=== PATIENT | male | born 1950 | race Caucasian/White ===

== ENCOUNTER → 2016-08-08 | Outpatient (CLI) | payer BC, MEDICARE ==
[~2016-08-08] MED LIST: ALBUTEROL MININEB NEB; ALBUTEROL17 GM INH; BAYER CHEWABLE81 MG PO; CARDIZEM30 M1 PO; CLONIDINE PO; FLOMAX0.4 M1 PO; HYDRALAZINE HC100 MG PO; LANTUS100 U/ML SUBQ; LEVAQUIN PO; LEVEMIR SUBQ; LIPITOR40 MG PO; NORVASC10 MG PO; NOVOLOG100 U/ML; NOVOLOG100 U/ML SUBQ; PREDNISONE10 MG/DOSE PO; PROMETHAZINE W118 M1 PO; TOPROL XL PO; VALCYTE450 MG PO; VFEND50 MG PO
--- NOTE | ~2016-08-08 | CT57 ---
[facility] A Service [facility] RADIOLOGY TEXT RESULTS PATIENT: DENIA KNAPP LOCATION: [facility] : 48 UNIT #: [id number] AGE: [address]: Earnest Call MD SEX: M ORDER DR: [id number] [place] [id number] O MR#: [id number] Acc #: [id number] NAME: DENIA KNAPP : 1950 SEX: M STUDY DATE/TIME: 08/08/2016 9:32 UNIT: [facility] ROOM: STUDY DESCRIPTION: CT Chest Wo Cont Attending Physician: Earnest Call M.D. Referring Physician: Earnest Call M.D. Ordering Physician: Earnest Call M.D. Primary Care Physician: Kang Agarwal M.D. MEDICAL IMAGING REPORT This report is preliminary unless electronic signature is present. EXAM CT chest without contrast. INDICATION Restaging lung cancer. Observation for metastatic disease. PROCEDURE Unenhanced CT of the chest. This CT exam was performed with one or more of the following radiation dose reduction techniques: automatic exposure control, adjustment of mA and/or kV according to patient size, and iterative reconstruction. COMPARISON STUDIES 06/06/2016 FINDINGS Linear interstitial prominence in the medial right upper lobe and superior segment of the right lower lobe shows some interval evolution and is most in keeping with postradiation change. There is a 9 mm subpleural nodule in the right lung base not seen on the prior. Left lung is clear. Right perihilar soft tissue thickening is stable. Partially calcified mediastinal nodes are not significantly changed. Nodular density along the anterior aspect of the proximal aortic arch is stable measuring 1.9 cm. Coronary artery calcification. No new or enlarging adenopathy. No aggressive appearing bone lesion. IMPRESSION 1. No evidence for disease progression. 2. Evolving postradiation change in the medial right upper lobe and superior segment of the right lower lobe. [facility] A Service [facility] RADIOLOGY TEXT RESULTS PATIENT: DENIA KNAPP LOCATION: [facility] : 48 UNIT #: [id number] AGE: [address]: Earnest Call MD SEX: M ORDER DR: 3. No new or enlarging adenopathy. 4. Refer to the separately dictated abdomen CT for findings below the diaphragm. Dictated by... Malvin Lisa M.D. THIS IS AN ELECTRONICALLY VERIFIED REPORT Malvin Lisa M.D. at 08/08/2016 5:05 PM JOSE R/phu TD: 08/08/2016 11:57 JOB #: [id number] MEDICAL IMAGING REPORT Page 1 of 1
--- NOTE | ~2016-08-08 | CT7 ---
[facility] A Service [facility] RADIOLOGY TEXT RESULTS PATIENT: DENIA KNAPP LOCATION: [facility] : 48 UNIT #: [id number] AGE: [address]: Earnest Call MD SEX: M ORDER DR: [id number] [place] [id number] O MR#: [id number] Acc #: [id number] NAME: DENIA KNAPP : 1950 SEX: M STUDY DATE/TIME: 08/08/2016 8:18 UNIT: [facility] ROOM: STUDY DESCRIPTION: CT Abdomen Wo Cont Attending Physician: Earnest Call M.D. Referring Physician: Earnest Call M.D. Ordering Physician: Earnest Call M.D. Primary Care Physician: Kang Agarwal M.D. MEDICAL IMAGING REPORT This report is preliminary unless electronic signature is present. EXAM CT abdomen without contrast INDICATION Restaging lung cancer. Observation for metastatic disease. PROCEDURE Unenhanced CT of the abdomen. COMPARISON 06/06/2016. TECHNIQUE This CT examination was performed with one or more of the following radiation dose reduction techniques: automatic exposure control, adjustment of mA and/or kV according to patient size, and iterative reconstruction. FINDINGS Refer to the separately dictated chest CT for thoracic findings. The liver, spleen, adrenal glands, kidneys, gallbladder have an unremarkable unenhanced appearance. Calcifications scattered throughout the pancreas suggesting chronic pancreatitis. The bowel loops are nondilated. There is moderate colonic stool burden. Atherosclerotic calcification of the abdominal aorta. No aggressive appearing bone lesion. IMPRESSION 1. No convincing evidence for metastatic disease in the abdomen or pelvis. 2. Incidental findings detailed above are very similar to the previous study. [facility] A Service [facility] RADIOLOGY TEXT RESULTS PATIENT: DENIA KNAPP LOCATION: [facility] : 48 UNIT #: [id number] AGE: [address]: Earnest Call MD SEX: M ORDER DR: Dictated by... Malvin E. Sloan, M.D. THIS IS AN ELECTRONICALLY VERIFIED REPORT Malvin Lisa M.D. at 08/15/2016 4:51 PM JOSE R/zayda TD: 08/08/2016 11:21 JOB #: [id number] MEDICAL IMAGING REPORT Page 1 of 1
== END | disposition home or self-care (01) ==
LOC: SCT 08:11
DX: C34.11 Malignant neoplasm of upper lobe, right bronchus or lung (principal); D61.810 Antineoplastic chemotherapy induced pancytopenia; I10 Essential (primary) hypertension; E11.65 Type 2 diabetes mellitus with hyperglycemia
CPT/HCPCS: 71250; 74150

== ENCOUNTER → 2016-08-15 | Outpatient (CLI) | payer BC, MEDICARE ==
[2016-08-15 13:10] LABS: HEMATOCRIT 38.2 % (38.0-50.0); HEMOGLOBIN 12.9 gm/dL (13.0-16.0); MEAN CELL VOLUME 91.9 FL (83-96); MEAN CORPUSCULAR HGB CONC 33.8 g/dL (30-36); MEAN PLATELET VOLUME 7.1 FL (6.5-11.5); RED BLOOD COUNT 4.16 X10e (3.90-5.60); RED CELL DISTRIBUTION WIDTH 15.7 % (11.0-15.5); WHITE BLOOD COUNT 8.9 X10e3 (4.0-10.5)
[2016-08-15 13:27] LABS: URINE APPEARANCE CLEAR; URINE BILIRUBIN NEG (NEG); URINE BLOOD TRACE-INTACT (NEG); URINE COLOR YELLOW; URINE KETONE NEG (NEG); URINE LEUKOCYTE ESTERASE NEG (NEG); URINE NITRATE NEG (NEG); URINE PH 5.5 (5-8); URINE PROTEIN 2+ (NEG); URINE SPECIFIC GRAVITY 1.025 (1.003-1.035); URINE UROBILINOGEN 0.2 MG/DL (NORM)
[2016-08-15 13:33] LABS: BUN/CREATININE RATIO 17.3; CALCIUM SERUM 9.1 mg/dL (8.4-10.2); CREATININE SERUM 2.6 mg/dL (0.6-1.4); GLOM FILT RATE Estimated 24.4 mL/min (>60); PHOSPHOROUS 5.3 mg/dL (2.5-4.6); POTASSIUM 4.5 mmol/L (3.5-5.1)
[2016-08-15 13:40] LABS: MICRO INDICATED? YES; URINE GLUCOSE NORM (NORM)
[2016-08-15 14:34] LABS: URINE BACTERIA NEG (NEG); URINE MUCUS PRESENT; URINE RBC 0-2 /[HPF] (0-2); URINE SQUAMOUS EPITHELIAL CELL FEW /[HPF]; URINE WBC NEG /[HPF] (0-5)
[2016-08-15 18:38] LABS: CREATININE,RANDOM URINE 250 mg/dL; TOTAL PROTEIN,RANDOM URINE 182 mg/dl (<10)
[2016-08-19 18:10] LABS: CALCIUM (PTHINTACT) 9.3 mg/dL (8.6-10.3)
== END | disposition home or self-care (01) ==
LOC: SLAB 12:58
PROVIDERS: Internal Medicine Nephrology
DX: N18.3 Chronic kidney disease, stage 3 (moderate) (principal); E11.9 Type 2 diabetes mellitus without complications; R80.1 Persistent proteinuria, unspecified; I73.9 Peripheral vascular disease, unspecified; N05.9 Unspecified nephritic syndrome with unspecified morphologic changes
CPT/HCPCS: 36415; 80048; 81003; 82310; 82570; 83036; 83970; 84100; 84156; 85027

== ENCOUNTER → 2016-08-22 | Outpatient (CLI) | payer BC, MEDICARE ==
--- NOTE | ~2016-08-22 | MR18 ---
[facility]. [facility] A Service of [facility] RADIOLOGY TEXT RESULTS PATIENT: DENIA KNAPP LOCATION: [facility] : 48 UNIT #: [id number] AGE: [address]: Mateo Hendrix MD SEX: M ORDER DR: [id number] [place] [id number] O MR#: [id number] Acc #: [id number] NAME: DENIA KNAPP : 1950 SEX: M STUDY DATE/TIME: 08/22/2016 15:06 UNIT: [facility] ROOM: STUDY DESCRIPTION: MR Brain Wo Contrast Attending Physician: Mateo Hendrix M.D. Referring Physician: Mateo Hendrix M.D. Ordering Physician: Physician Non-Staff Primary Care Physician: Kang Agarwal M.D. MRI CENTER REPORT This report is preliminary unless electronic signature is present. EXAM MRI of the brain without contrast dated 08/22/2016. COMPARISON MRI brain without contrast dated 01/11/2016. HISTORY Lung cancer for radiation planning. Evaluate for brain mets. FINDINGS Multisequence, multiplanar imaging of the brain was obtained without contrast as GFR is 24. This significantly limits evaluation of small metastatic foci. Grossly no edematous masses are seen in the brain. There are scattered less than 1 cm few hyperintense T2-signal lesions in the white matter, particularly in biparietal periventricular region. They are slightly worse when compared to the previous study from last year. No acute stroke, hydrocephalus, hemorrhage or midline shift is seen. Thick slices through the sella with the pituitary gland, pineal region, and upper cervical spine do not demonstrate any significant abnormality. There is severe opacification of the left maxillary antrum and bilateral mastoid air cells. IMPRESSION 1. A few scattered hyperintense T2-signal lesions are noted in the brain involving the white matter, particularly in the biparietal region. They are likely related to mild chronic microvascular ischemic change or migraine based on age and statistics. Correlate clinically. 2. Without contrast, small metastatic foci and abnormal enhancing lesions cannot be evaluated. The study is limited. 3. No acute stroke, hydrocephalus, hemorrhage, or midline shift. 4. Severe left maxillary and bilateral mastoid mucosal thickening. [facility] A Service of [facility] RADIOLOGY TEXT RESULTS PATIENT: DENIA KNAPP LOCATION: [facility] : 48 UNIT #: [id number] AGE: [address]: Mateo Hendrix MD SEX: M ORDER DR: Dictated by... Kaveh Gee M.D. THIS IS AN ELECTRONICALLY VERIFIED REPORT Kaveh Gee M.D. at 08/25/2016 1:47 PM CPR/tmw TD: 08/23/2016 12:57 JOB #: [id number] MRI CENTER REPORT Page 1 of 1
== END | disposition home or self-care (01) ==
LOC: SMRI 14:11
DX: C34.90 Malignant neoplasm of unspecified part of unspecified bronchus or lung (principal); J34.89 Other specified disorders of nose and nasal sinuses; R90.89 Other abnormal findings on diagnostic imaging of central nervous system
CPT/HCPCS: 70551

== ENCOUNTER → 2016-09-15 | Outpatient (CLI) | payer BC, MEDICARE ==
[2016-09-15 11:39] LABS: HEMATOCRIT 39.7 % (38.0-50.0); HEMOGLOBIN 13.3 gm/dL (13.0-16.0); MEAN CELL VOLUME 89.6 FL (83-96); MEAN CORPUSCULAR HGB CONC 33.5 g/dL (30-36); MEAN PLATELET VOLUME 7.5 FL (6.5-11.5); RED BLOOD COUNT 4.43 X10e (3.90-5.60); RED CELL DISTRIBUTION WIDTH 15.4 % (11.0-15.5); WHITE BLOOD COUNT 10.8 X10e3 (4.0-10.5)
[2016-09-15 11:44] LABS: BUN/CREATININE RATIO 14.81; CALCIUM SERUM 9.4 mg/dL (8.4-10.2); CREATININE SERUM 2.7 mg/dL (0.6-1.4); GLOM FILT RATE Estimated 23.3 mL/min (>60); POTASSIUM 4.9 mmol/L (3.5-5.1)
== END | disposition home or self-care (01) ==
LOC: SLAB 11:00
PROVIDERS: Internal Medicine Nephrology
DX: I12.9 Hypertensive chronic kidney disease with stage 1 through stage 4 chronic kidney disease, or unspecified chronic kidney disease (principal); N18.3 Chronic kidney disease, stage 3 (moderate)
CPT/HCPCS: 36415; 80048; 85027

== ENCOUNTER → 2016-12-04 | Outpatient (CLI) | payer BC, MEDICARE ==
--- NOTE | ~2016-12-04 | MR18 ---
[facility] A Service [facility] RADIOLOGY TEXT RESULTS PATIENT: DENIA KNAPP LOCATION: [facility] : 48 UNIT #: [id number] AGE: [address]: Earnest Call MD SEX: M ORDER DR: [id number] [place] [id number] O MR#: [id number] Acc #: [id number] NAME: DENIA KNAPP : 1950 SEX: M STUDY DATE/TIME: 12/04/2016 15:23 UNIT: [facility] ROOM: STUDY DESCRIPTION: MR Brain Wo Contrast Attending Physician: Earnest Call M.D. Referring Physician: Earnest Call M.D. Ordering Physician: Earnest Call M.D. Primary Care Physician: Kang Agarwal M.D. MRI CENTER REPORT This report is preliminary unless electronic signature is present. EXAM MRI brain without contrast INDICATIONS Lung cancer, status post radiation therapy. Staging. Observation for metastatic disease. The patient reports persistent dizziness and unsteady gait, since 08/22/2016. PROCEDURE Multiplanar multisequence MR imaging of the brain without contrast COMPARISON 08/22/2016 FINDINGS Diffusion-weighted imaging shows no abnormal restricted diffusion. There is no acute hemorrhage, abnormal mass effect, extraaxial collection or hydrocephalus. Moderate periventricular and white matter T2 hyperintensity particularly in both parietal white matter stable. Flow voids major vessels are intact. Persistent mucosal thickening and opacification of the left mastoid sinus. IMPRESSION 1. No definitive evidence for intracranial metastatic disease when allowing for the lack of contrast. 2. Periventricular and bifrontal deep white matter T2 hyperintensity is most in keeping with chronic small vessel ischemic change. 3. Stable left maxillary sinus mucosal thickening and opacification. 1. [facility] A Service [facility] RADIOLOGY TEXT RESULTS PATIENT: DENIA KNAPP LOCATION: [facility] : 48 UNIT #: [id number] AGE: [address]: Earnest Call MD SEX: M ORDER DR: Dictated by... Malvin Lisa M.D. THIS IS AN ELECTRONICALLY VERIFIED REPORT Malvin Lisa M.D. at 12/09/2016 8:26 AM JOSE R/pam TD: 12/08/2016 12:04 JOB #: [id number] MRI CENTER REPORT Page 1 of 1
[2016-12-04 15:56] LABS: POC - CREATININE 2.59 mg/dL (0.64-1.27)
== END | disposition home or self-care (01) ==
LOC: SMRI 15:15
PROVIDERS: Internal Medicine Hematology & Oncology
DX: C34.11 Malignant neoplasm of upper lobe, right bronchus or lung (principal); D61.810 Antineoplastic chemotherapy induced pancytopenia; E11.65 Type 2 diabetes mellitus with hyperglycemia; I10 Essential (primary) hypertension; R90.82 White matter disease, unspecified; J34.89 Other specified disorders of nose and nasal sinuses
CPT/HCPCS: 70551; 82565

== ENCOUNTER → 2016-12-10 | Outpatient (CLI) | payer BC, MEDICARE ==
[2016-12-10 14:05] LABS: HEMATOCRIT 36.4 % (38.0-50.0); HEMOGLOBIN 12.2 gm/dL (13.0-16.0); MEAN CELL VOLUME 83.8 FL (83-96); MEAN CORPUSCULAR HEMOGLOBIN 28.2 PG (28-34); MEAN CORPUSCULAR HGB CONC 33.6 g/dL (30-36); MEAN PLATELET VOLUME 7.8 FL (6.5-11.5); RED BLOOD COUNT 4.34 X10e (3.90-5.60); WHITE BLOOD COUNT 7.2 X10e3 (4.0-10.5)
[2016-12-10 14:09] LABS: URINE APPEARANCE CLEAR; URINE BLOOD 2+ (NEG); URINE COLOR YELLOW; URINE GLUCOSE NEG (NORM); URINE KETONE TRACE (NEG); URINE LEUKOCYTE ESTERASE NEG (NEG); URINE NITRATE NEG (NEG); URINE PH 5.5 (5-8); URINE PROTEIN 3+ (NEG); URINE SPECIFIC GRAVITY >=1.030 (1.003-1.035)
[2016-12-10 14:12] LABS: MICRO INDICATED? YES
[2016-12-10 14:15] LABS: BUN/CREATININE RATIO 12.4; CALCIUM SERUM 9.2 mg/dL (8.4-10.2); CREATININE SERUM 2.5 mg/dL (0.6-1.4); GLOM FILT RATE Estimated 25.6 mL/min (>60); POTASSIUM 4.1 mmol/L (3.5-5.1)
[2016-12-10 14:25] LABS: URINE BILIRUBIN NEG (NEG)
[2016-12-10 14:30] LABS: URINE RBC 0-2 /[HPF] (0-2); URINE WBC 0-2 /[HPF] (0-5)
[2016-12-10 14:31] LABS: URINE BACTERIA 1+ (NEG)
[2016-12-10 14:32] LABS: URINE GRANULAR CAST 0-2 /[HPF]; URINE HYALINE CAST 0-2 /[HPF]; URINE SQUAMOUS EPITHELIAL CELL OCCAS /[HPF]
[2016-12-10 14:56] LABS: PHOSPHOROUS 3.9 mg/dL (2.5-4.6)
[2016-12-10 17:33] LABS: CREATININE,RANDOM URINE 438 mg/dL; TOTAL PROTEIN,RANDOM URINE 127 mg/dl (<10)
[2016-12-13 09:21] LABS: CALCIUM (PTHINTACT) 9.4 mg/dL (8.6-10.3)
== END | disposition home or self-care (01) ==
LOC: SLAB 13:19
PROVIDERS: Internal Medicine Nephrology
DX: N18.3 Chronic kidney disease, stage 3 (moderate) (principal); D63.1 Anemia in chronic kidney disease; N25.81 Secondary hyperparathyroidism of renal origin
CPT/HCPCS: 36415; 80048; 81003; 82306; 82310; 82570; 82728; 83540; 83550; 83970; 84100; 84156; 85027